=== PATIENT | female | born 1955 ===

== ENCOUNTER 2017-10-03 12:19 | Emergency (ER) | payer OTHER ==
[~2017-10-03] VITALS: Ht 157.5 cm; Wt 51.3 kg
[2017-10-03] MEDS ORDERED: LASIX20 MG (12:50)
[2017-10-05] MEDS ORDERED: NORVASC5 MG (05:20)
[2017-10-05] MEDS ORDERED: MEDROLPACK PO (06:37)
[2017-10-05] MEDS ORDERED: PERCOCET 5-3251 EACH PO (06:37)
== END 2017-10-03 18:09 | disposition home or self-care (01) ==
LOC: ER 12:19
DX: M25.512 Pain in left shoulder (principal); M54.2 Cervicalgia

== ENCOUNTER → 2017-10-05 | Emergency (ER) | payer OTHER ==
[~2017-10-05] VITALS: Ht 157.5 cm; Wt 46.7 kg
[~2017-10-05] MED LIST: LASIX20 MG; MEDROLPACK PO; NORVASC5 MG; PERCOCET 5-3251 EACH PO
== END | disposition home or self-care (01) ==
LOC: ER 04:59
DX: M75.32 Calcific tendinitis of left shoulder (principal)